=== PATIENT | male | born 1945 | race Caucasian/White ===

== ENCOUNTER 2021-12-19 15:44 | Emergency (ER) | payer OTHER, MEDICARE ==
[2021-12-19] MEDS ORDERED: Metolazone 2.5 MG Tab PO ONE (16:36)
[2021-12-19] MEDS ORDERED: Furosemide 40 MG/4 ML VIAL IVPUSH ONE (16:36)
[2021-12-19] MEDS ORDERED: hydrALAZINE 20 MG/ML SDV IVPUSH STA (16:37)
[2021-12-19] MEDS: Sodium Chloride 0.9% 10 ML Syringe FLUSH PRN ×2 (17:16→17:30)
[2021-12-19 18:09] LABS: CORONAVIRUS COVID-19 NAA NEGATIVE (NEGATIVE)
== END 2021-12-19 19:40 | disposition home or self-care (01) ==
LOC: FB.ED 15:44
DX: I50.9 Heart failure, unspecified (principal); I44.7 Left bundle-branch block, unspecified; Z91.048 Other nonmedicinal substance allergy status; Z20.822 Contact with and (suspected) exposure to COVID-19
CPT/HCPCS: 0240U; 36415; 71045; 80053; 83880; 84484; 85025; 85610; 85730; 93005; 96374; 96375; 99285; A9270; J0360; J1940; 93010

== ENCOUNTER 2022-09-24 16:39 | Inpatient (IN) | payer OTHER, MEDICARE ==
[2022-09-24] MEDS ORDERED: Furosemide 40 MG/4 ML VIAL IVPUSH ONE (17:20)
[2022-09-24] MEDS ORDERED: Albuterol/Ipratropium 3.0-0.5 MG/3 ML Neb Soln NEB ONE (17:23)
[2022-09-24] MEDS: Nitroglycerin/D5W 25 MG/250 ML BOTTLE IV SCH (17:33)
[2022-09-24 17:45] LABS: ESTIMATED GFR 36 mL/min (>60)
[2022-09-24 17:51] LABS: BASE EXCESS VENOUS,POC -5 mmol/L (-2 - 3+); PCO2 VENOUS,POC 31 mmHg (41-51)
[2022-09-24 19:17] LABS: CORONAVIRUS COVID-19 NAA NEGATIVE (NEGATIVE)
[2022-09-24] MEDS ORDERED: Magnesium Hydroxide 400 MG/5 ML Susp 30 ML Cup PO PRN (20:50)
[2022-09-24] MEDS ORDERED: Zolpidem 5 MG Tab PO PRN (20:50)
[2022-09-24] MEDS ORDERED: Ondansetron 4 MG/2 ML SDV IV PRN (20:50)
[2022-09-24] MEDS ORDERED: 50% Dextrose in Water 50 ML Syringe IVPUSH PRN ×2 (20:58→21:03)
[2022-09-24] MEDS ORDERED: Glucagon,Human Recombinant 1 MG Vial IM PRN ×2 (20:58→21:03)
[2022-09-24] MEDS ORDERED: Acetaminophen 325 MG Tab PO PRN (20:58)
[2022-09-24] MEDS ORDERED: Furosemide 40 MG/4 ML VIAL IVPUSH SCH ×2 (21:00→23:30)
[2022-09-24] MEDS ORDERED: Albuterol/Ipratropium 3.0-0.5 MG/3 ML Neb Soln INH SCH (21:00)
[2022-09-24] MEDS ORDERED: Pantoprazole 40 MG Vial IVPUSH SCH (21:00)
[2022-09-24] MEDS ORDERED: Nitroglycerin/D5W 25 MG/250 ML BOTTLE IV SCH (21:00)
[2022-09-24] MEDS ORDERED: Azithromycin 250 MG Tab PO SCH (21:15)
[2022-09-24] MEDS: Enoxaparin 40 MG/0.4 ML Syringe SUBCUT SCH (22:08)
[2022-09-24] MEDS: METOPROLOL TARTRATE 50 MG PO SCH (23:36)
[2022-09-24] MEDS: Albuterol/Ipratropium 3.0-0.5 MG/3 ML Neb Soln INH SCH (23:38)
[2022-09-24] MEDS: ATORVASTATIN 80 MG PO SCH (23:38)
[2022-09-24] MEDS: Pantoprazole 40 MG Vial IVPUSH SCH (23:42)
[2022-09-25] MEDS: Nitroglycerin/D5W 25 MG/250 ML BOTTLE IV SCH ×2 (00:20→04:34)
[2022-09-25] MEDS: Albuterol/Ipratropium 3.0-0.5 MG/3 ML Neb Soln INH SCH ×5 (04:38→22:34)
[2022-09-25 06:59] LABS: ESTIMATED GFR 36 mL/min (>60)
[2022-09-25] MEDS ORDERED: Insulin Regular, Human 100 Units/ML 3 ML Vial SUBCUT SCH (07:30)
[2022-09-25] MEDS ORDERED: Furosemide 40 MG/4 ML VIAL IVPUSH SCH (08:00)
[2022-09-25] MEDS ORDERED: AMLODIPINE PO SCH (09:00)
[2022-09-25] MEDS ORDERED: BENAZEPRIL PO SCH (09:00)
[2022-09-25] MEDS ORDERED: Insulin Lispro 100 Unit/ML 3 ML KwikPen SUBCUT ONE (10:05)
[2022-09-25] MEDS: Potassium Chloride 20 MEQ Tab.ER PO SCH (10:06)
[2022-09-25] MEDS: Lisinopril 20 MG Tab PO SCH (10:06)
[2022-09-25] MEDS: METOPROLOL TARTRATE 50 MG PO SCH ×2 (10:07→20:54)
[2022-09-25] MEDS: Venlafaxine 150 MG Cap.ER PO SCH ×2 (10:08→20:54)
[2022-09-25] MEDS: Insulin Lispro 100 Unit/ML 3 ML KwikPen SUBCUT SCH ×3 (10:08→17:18)
[2022-09-25] MEDS: Pantoprazole 40 MG Vial IVPUSH SCH (10:17)
[2022-09-25] MEDS: methylPREDNISolone Sodium Succinate 125 MG/2 ML SDV IVPUSH SCH ×3 (10:28→22:33)
[2022-09-25] MEDS: Furosemide 40 MG Tab PO SCH (13:12)
[2022-09-25] MEDS ORDERED: Labetalol 20 MG/4 ML Syringe IVPUSH ONE (15:33)
[2022-09-25] MEDS ORDERED: Nicotine 21 MG/24 Hr Patch TRDERM SCH (18:00)
[2022-09-25] MEDS: hydrALAZINE 20 MG/ML SDV IVPUSH PRN (18:19)
[2022-09-25] MEDS: INSULIN GLARGINE HUMAN REC ANALOG 100 UNIT/ML SUBCUT SCH (18:47)
[2022-09-25] MEDS: ATORVASTATIN 80 MG PO SCH (20:55)
[2022-09-25] MEDS: Enoxaparin 40 MG/0.4 ML Syringe SUBCUT SCH (20:56)
[2022-09-25] MEDS: Azithromycin 500 MG Tab PO SCH (20:56)
[2022-09-25] MEDS ORDERED: Azithromycin 500 MG Tab PO SCH (21:00)
[2022-09-26] MEDS: methylPREDNISolone Sodium Succinate 125 MG/2 ML SDV IVPUSH SCH ×2 (04:26→10:39)
[2022-09-26] MEDS: Albuterol/Ipratropium 3.0-0.5 MG/3 ML Neb Soln INH SCH ×4 (04:26→23:45)
[2022-09-26] MEDS: Sodium Chloride 0.9% 10 ML Syringe FLUSH PRN ×8 (04:28→17:09)
[2022-09-26] MEDS: hydrALAZINE 20 MG/ML SDV IVPUSH PRN ×2 (04:29→17:04)
[2022-09-26 06:37] LABS: ESTIMATED GFR 34 mL/min (>60)
[2022-09-26] MEDS ORDERED: Chlorthalidone 25 MG Tab PO ONE (07:56)
[2022-09-26] MEDS: Potassium Chloride 20 MEQ Tab.ER PO SCH (08:30)
[2022-09-26] MEDS: Furosemide 40 MG Tab PO SCH ×2 (08:30→13:33)
[2022-09-26] MEDS: METOPROLOL TARTRATE 50 MG PO SCH (08:31)
[2022-09-26] MEDS: Lisinopril 20 MG Tab PO SCH (08:34)
[2022-09-26] MEDS: Insulin Lispro 100 Unit/ML 3 ML KwikPen SUBCUT SCH ×3 (08:35→17:58)
[2022-09-26] MEDS: Pantoprazole 40 MG Vial IVPUSH SCH (08:35)
[2022-09-26] MEDS ORDERED: Fluticasone NASAL Spray 16 GM Bottle NASBOTH SCH (09:00)
[2022-09-26] MEDS: INSULIN GLARGINE HUMAN REC ANALOG 100 UNIT/ML SUBCUT SCH (18:00)
[2022-09-26] MEDS ORDERED: Nicotine 21 MG/24 Hr Patch TRDERM SCH (18:00)
[2022-09-26] MEDS: Venlafaxine 150 MG Cap.ER PO SCH (20:38)
[2022-09-26] MEDS: Azithromycin 500 MG Tab PO SCH (20:39)
[2022-09-26] MEDS: Metoprolol Tartrate 25 MG Tab PO SCH (20:39)
[2022-09-26] MEDS: Enoxaparin 40 MG/0.4 ML Syringe SUBCUT SCH (20:43)
[2022-09-26] MEDS ORDERED: atorvaSTATin 40 MG Tab PO SCH (21:00)
[2022-09-27] MEDS: Albuterol/Ipratropium 3.0-0.5 MG/3 ML Neb Soln INH SCH ×2 (05:27→10:35)
[2022-09-27 06:51] LABS: ESTIMATED GFR 30 mL/min (>60)
[2022-09-27] MEDS: Insulin Lispro 100 Unit/ML 3 ML KwikPen SUBCUT SCH ×2 (08:40→12:28)
[2022-09-27] MEDS ORDERED: Furosemide 40 MG/4 ML VIAL IVPUSH ONE (08:45)
[2022-09-27] MEDS: Potassium Chloride 20 MEQ Tab.ER PO SCH (08:57)
[2022-09-27] MEDS: Metoprolol Tartrate 25 MG Tab PO SCH (08:58)
[2022-09-27] MEDS: Pantoprazole 40 MG Vial IVPUSH SCH (08:59)
[2022-09-27] MEDS: Lisinopril 20 MG Tab PO SCH (08:59)
[2022-09-27] MEDS ORDERED: Metolazone 2.5 MG Tab PO SCH (09:00)
[2022-09-27] MEDS: Sodium Chloride 0.9% 10 ML Syringe FLUSH PRN ×3 (09:01→14:48)
[2022-09-27] MEDS: Furosemide 40 MG Tab PO SCH (09:14)
[2022-09-27] MEDS ORDERED: Furosemide 40 MG/4 ML VIAL IVPUSH SCH (14:00)
== END 2022-09-27 16:20 | DRG 291 ==
LOC: FB.ED 16:39 → FB.MS 19:24 → OBSVTOIN 09-26 12:25
PROVIDERS: ADMIT Student in an Organized Health Care Education/Training Program; ATTEND Student in an Organized Health Care Education/Training Program
DX: I13.0 Hypertensive heart and chronic kidney disease with heart failure and stage 1 through stage 4 chronic kidney disease, or unspecified chronic kidney disease (principal); I50.20 Unspecified systolic (congestive) heart failure; I50.23 Acute on chronic systolic (congestive) heart failure; J44.1 Chronic obstructive pulmonary disease with (acute) exacerbation; J90 Pleural effusion, not elsewhere classified; N18.9 Chronic kidney disease, unspecified; E11.22 Type 2 diabetes mellitus with diabetic chronic kidney disease; N17.9 Acute kidney failure, unspecified; J81.1 Chronic pulmonary edema; I44.7 Left bundle-branch block, unspecified; E11.9 Type 2 diabetes mellitus without complications; E66.9 Obesity, unspecified; D72.829 Elevated white blood cell count, unspecified; I34.0 Nonrheumatic mitral (valve) insufficiency; H54.7 Unspecified visual loss; E78.00 Pure hypercholesterolemia, unspecified; Z87.891 Personal history of nicotine dependence; Z79.4 Long term (current) use of insulin; Z79.899 Other long term (current) drug therapy; Z91.09 Other allergy status, other than to drugs and biological substances; Z20.822 Contact with and (suspected) exposure to COVID-19; Z68.26 Body mass index [BMI] 26.0-26.9, adult
CPT/HCPCS: 0241U; 36415; 71045; 80048; 80053; 81001; 82947; 83605; 83735; 83880; 84484; 85025; 86140; 93005; 93306; 94640; A9270-GY; C8929; C9113; J0360; J1650; J1815; J1815-GY; J1940; J2930; J3490; J7620

== ENCOUNTER 2022-10-11 15:24 | Emergency (ER) | payer OTHER, MEDICARE ==
[2022-10-11] MEDS ORDERED: Sodium Chloride 0.9% 10 ML Syringe FLUSH PRN (16:21)
[2022-10-11 17:09] LABS: BASE EXCESS VENOUS,POC -3 mmol/L (-2 - 3+); PCO2 VENOUS,POC 24 mmHg (41-51)
[2022-10-11 17:10] LABS: ESTIMATED GFR 34 mL/min (>60)
[2022-10-11] MEDS ORDERED: Albuterol/Ipratropium 3.0-0.5 MG/3 ML Neb Soln NEB ONE (17:20)
[2022-10-11] MEDS ORDERED: Magnesium Sulfate/Water 2 GM in Premix Bag 1 BAG IV ONE (17:20)
[2022-10-11] MEDS ORDERED: methylPREDNISolone Sodium Succinate 40 MG/1 ML SDV IVPUSH ONE (17:37)
[2022-10-11 17:56] LABS: CORONAVIRUS COVID-19 NAA NEGATIVE (NEGATIVE)
[2022-10-11] MEDS ORDERED: Aspirin 81 MG Tab.Chew PO ONE (18:58)
[2022-10-11] MEDS ORDERED: cefTRIAXone 2 GM Vial IVPUSH ONE (18:58)
[2022-10-11] MEDS ORDERED: cefTRIAXone 1 GM Vial IVPUSH SCH (19:45)
[2022-10-11] MEDS ORDERED: cefTRIAXone 1 GM Vial ONE (21:03)
== END 2022-10-11 20:08 ==
LOC: FB.ED 15:24
DX: J18.9 Pneumonia, unspecified organism (principal); J44.1 Chronic obstructive pulmonary disease with (acute) exacerbation; I24.9 Acute ischemic heart disease, unspecified; R79.89 Other specified abnormal findings of blood chemistry; I11.0 Hypertensive heart disease with heart failure; I50.9 Heart failure, unspecified; E11.9 Type 2 diabetes mellitus without complications; Z91.048 Other nonmedicinal substance allergy status; Z79.899 Other long term (current) drug therapy; Z79.4 Long term (current) use of insulin; Z79.84 Long term (current) use of oral hypoglycemic drugs; Z87.891 Personal history of nicotine dependence; Z20.822 Contact with and (suspected) exposure to COVID-19
CPT/HCPCS: 0240U; 36415; 71045; 80053; 83605; 83735; 83880; 84484; 85025; 86140; 87040; 93005; 94640; 96365; 96375; 99285; A9270; J0696; J2920; J3475; J3490; J7620

== ENCOUNTER 2022-10-16 11:01 | Emergency (ER) | payer OTHER, MEDICARE ==
[2022-10-16] MEDS ORDERED: LORazepam 2 MG/ML SDV IVPUSH ONE (11:54)
[2022-10-16] MEDS ORDERED: Sodium Chloride 0.9% 10 ML Syringe FLUSH PRN (11:54)
[2022-10-16] MEDS ORDERED: Albuterol/Ipratropium 3.0-0.5 MG/3 ML Neb Soln NEB ONE (11:54)
[2022-10-16] MEDS ORDERED: methylPREDNISolone Sodium Succinate 125 MG/2 ML SDV IVPUSH ONE (11:57)
[2022-10-16 12:28] LABS: ESTIMATED GFR 26 mL/min (>60)
[2022-10-16 12:35] LABS: BASE EXCESS VENOUS,POC -6 mmol/L (-2 - 3+); PCO2 VENOUS,POC 24 mmHg (41-51); PH VENOUS,POC 7.45 pH Units (7.32-7.43)
[2022-10-16] MEDS ORDERED: Furosemide 20 MG/2 ML VIAL IVPUSH STA (13:58)
[2022-10-16] MEDS ORDERED: Furosemide 40 MG/4 ML VIAL IVPUSH STA (14:25)
[2022-10-16] MEDS ORDERED: Metolazone 2.5 MG Tab PO ONE (14:33)
== END 2022-10-16 17:00 ==
LOC: FB.ED 11:01
DX: J44.9 Chronic obstructive pulmonary disease, unspecified (principal); I13.0 Hypertensive heart and chronic kidney disease with heart failure and stage 1 through stage 4 chronic kidney disease, or unspecified chronic kidney disease; E11.22 Type 2 diabetes mellitus with diabetic chronic kidney disease; N18.9 Chronic kidney disease, unspecified; I50.1 Left ventricular failure, unspecified; E78.00 Pure hypercholesterolemia, unspecified; R00.0 Tachycardia, unspecified; I44.7 Left bundle-branch block, unspecified; Z87.891 Personal history of nicotine dependence; Z91.048 Other nonmedicinal substance allergy status; Z79.899 Other long term (current) drug therapy; Z79.4 Long term (current) use of insulin
CPT/HCPCS: 36415; 71045; 80053; 81001; 83880; 84484; 85025; 85610; 85730; 87040; 93005; 94640; 96374; 96375; 99285; A9270; J1940; J2060; J2930; J3490; J7620

== ENCOUNTER 2022-10-23 13:41 | Inpatient (IN) | payer OTHER, MEDICARE ==
[2022-10-23] MEDS ORDERED: Glucagon,Human Recombinant 1 MG Vial IM PRN (16:32)
[2022-10-23] MEDS ORDERED: Fluticasone NASAL Spray 16 GM Bottle NASBOTH PRN (16:32)
[2022-10-23] MEDS ORDERED: Acetaminophen/HYDROcodone 325-5 MG Tab PO PRN (16:32)
[2022-10-23] MEDS ORDERED: Albuterol 8 GM Inhaler INH PRN (16:32)
[2022-10-23] MEDS ORDERED: QUEtiapine 25 MG Tab PO PRN (16:32)
[2022-10-23] MEDS ORDERED: Calcium Carbonate 500 MG Tab.Chew CHEW PRN ×2 (16:32→16:40)
[2022-10-23] MEDS ORDERED: 50% Dextrose in Water 50 ML Syringe IVPUSH PRN (16:32)
[2022-10-23] MEDS ORDERED: Albuterol/Ipratropium 3.0-0.5 MG/3 ML Neb Soln INH PRN (17:04)
[2022-10-23] MEDS ORDERED: Nicotine Polacrilex 2 MG Gum BUCCAL PRN (17:05)
[2022-10-23] MEDS: Carvedilol 12.5 MG Tab PO SCH (17:06)
[2022-10-23] MEDS: metFORMIN 1,000 MG Tab PO SCH (17:13)
[2022-10-23] MEDS: Acetaminophen 325 MG Tab PO PRN (18:41)
[2022-10-23] MEDS: Ticagrelor 90 MG Tab PO SCH (20:22)
[2022-10-23] MEDS: Venlafaxine 150 MG Cap.ER PO SCH (20:23)
[2022-10-23] MEDS: Tamsulosin 0.4 MG Cap.ER PO SCH (20:24)
[2022-10-23] MEDS: atorvaSTATin 40 MG Tab PO SCH (20:24)
[2022-10-23] MEDS: Mirtazapine 15 MG Tab PO SCH (20:25)
[2022-10-23] MEDS: Sodium Bicarbonate 650 MG Tab PO SCH (20:25)
[2022-10-23] MEDS: Insulin Glargine,Human Rec. Analog 100 Units/ML 3 ML Pen SUBCUT SCH (20:31)
[2022-10-24] MEDS: Pantoprazole 40 MG Tab.CR PO SCH (05:00)
[2022-10-24] MEDS: Acetaminophen 325 MG Tab PO PRN (05:04)
[2022-10-24] MEDS: metFORMIN 1,000 MG Tab PO SCH ×2 (07:58→17:29)
[2022-10-24] MEDS: Carvedilol 12.5 MG Tab PO SCH ×2 (07:58→17:27)
[2022-10-24] MEDS: Nicotine 21 MG/24 Hr Patch TOP SCH (08:00)
[2022-10-24] MEDS: Furosemide 20 MG Tab PO SCH (08:01)
[2022-10-24] MEDS: Ticagrelor 90 MG Tab PO SCH ×2 (08:01→19:59)
[2022-10-24] MEDS: Isosorbide Mononitrate 30 MG Tab.ER PO SCH (08:01)
[2022-10-24] MEDS: Sodium Bicarbonate 650 MG Tab PO SCH ×2 (08:02→20:00)
[2022-10-24] MEDS: Folic Acid 1 MG Tab PO SCH (08:03)
[2022-10-24] MEDS: Cholecalciferol (Vitamin D3) 25 MCG Tab PO SCH (08:03)
[2022-10-24] MEDS: Aspirin 81 MG Tab.EC PO SCH (08:03)
[2022-10-24] MEDS ORDERED: Docusate Sodium 100 MG Cap PO PRN ×2 (08:44→08:46)
[2022-10-24] MEDS: Polyethylene Glycol 3350 Powder 17 GM Packet PO SCH (09:28)
[2022-10-24] MEDS: Sodium Chloride 0.65% Nasal Spray 45 ML Bottle NASBOTH SCH ×4 (10:51→20:00)
[2022-10-24] MEDS: atorvaSTATin 40 MG Tab PO SCH (19:59)
[2022-10-24] MEDS: Tamsulosin 0.4 MG Cap.ER PO SCH (19:59)
[2022-10-24] MEDS: Venlafaxine 150 MG Cap.ER PO SCH (19:59)
[2022-10-24] MEDS: Mirtazapine 15 MG Tab PO SCH (20:00)
[2022-10-24] MEDS: Insulin Glargine,Human Rec. Analog 100 Units/ML 3 ML Pen SUBCUT SCH (20:01)
[2022-10-25] MEDS: Pantoprazole 40 MG Tab.CR PO SCH (05:44)
[2022-10-25] MEDS ORDERED: Bisacodyl 10 MG Supp RECTAL PRN (08:09)
[2022-10-25] MEDS: Sodium Chloride 0.65% Nasal Spray 45 ML Bottle NASBOTH SCH ×4 (08:58→20:42)
[2022-10-25] MEDS ORDERED: Sodium Chloride 0.65% Nasal Spray 45 ML Bottle NAS PRN (09:00)
[2022-10-25] MEDS: Carvedilol 12.5 MG Tab PO SCH ×2 (09:03→18:20)
[2022-10-25] MEDS: metFORMIN 1,000 MG Tab PO SCH ×2 (09:03→18:19)
[2022-10-25] MEDS: Ticagrelor 90 MG Tab PO SCH ×2 (09:06→20:35)
[2022-10-25] MEDS: Folic Acid 1 MG Tab PO SCH (09:08)
[2022-10-25] MEDS: Nicotine 21 MG/24 Hr Patch TOP SCH (09:08)
[2022-10-25] MEDS: Furosemide 20 MG Tab PO SCH (09:10)
[2022-10-25] MEDS: Aspirin 81 MG Tab.EC PO SCH (09:10)
[2022-10-25] MEDS: Isosorbide Mononitrate 30 MG Tab.ER PO SCH (09:10)
[2022-10-25] MEDS: Cholecalciferol (Vitamin D3) 25 MCG Tab PO SCH (09:11)
[2022-10-25] MEDS: Polyethylene Glycol 3350 Powder 17 GM Packet PO SCH (09:11)
[2022-10-25] MEDS: Sodium Bicarbonate 650 MG Tab PO SCH ×2 (09:11→20:37)
[2022-10-25] MEDS: Docusate Sodium 100 MG Cap PO SCH (09:15)
[2022-10-25] MEDS: Tamsulosin 0.4 MG Cap.ER PO SCH (20:36)
[2022-10-25] MEDS: Venlafaxine 150 MG Cap.ER PO SCH (20:36)
[2022-10-25] MEDS: atorvaSTATin 40 MG Tab PO SCH (20:37)
[2022-10-25] MEDS: Mirtazapine 15 MG Tab PO SCH (20:37)
[2022-10-25] MEDS: Insulin Glargine,Human Rec. Analog 100 Units/ML 3 ML Pen SUBCUT SCH (20:41)
[2022-10-26] MEDS ORDERED: cloNIDine 0.1 MG Tab PO ONE (04:27)
[2022-10-26] MEDS: Pantoprazole 40 MG Tab.CR PO SCH (06:00)
[2022-10-26] MEDS: metFORMIN 1,000 MG Tab PO SCH (09:00)
[2022-10-26] MEDS: Carvedilol 12.5 MG Tab PO SCH (09:00)
[2022-10-26] MEDS: Sodium Chloride 0.65% Nasal Spray 45 ML Bottle NASBOTH SCH (09:01)
[2022-10-26] MEDS: Sodium Bicarbonate 650 MG Tab PO SCH (09:03)
[2022-10-26] MEDS: Aspirin 81 MG Tab.EC PO SCH (09:04)
[2022-10-26] MEDS: Ticagrelor 90 MG Tab PO SCH (09:04)
[2022-10-26] MEDS: Folic Acid 1 MG Tab PO SCH (09:04)
[2022-10-26] MEDS: Isosorbide Mononitrate 30 MG Tab.ER PO SCH (09:04)
[2022-10-26] MEDS: Furosemide 20 MG Tab PO SCH (09:04)
[2022-10-26] MEDS: Cholecalciferol (Vitamin D3) 25 MCG Tab PO SCH (09:05)
[2022-10-26] MEDS: Polyethylene Glycol 3350 Powder 17 GM Packet PO SCH (09:06)
[2022-10-26] MEDS: Nicotine 21 MG/24 Hr Patch TOP SCH (09:06)
[2022-10-26] MEDS: Docusate Sodium 100 MG Cap PO SCH (09:19)
== END 2022-10-26 11:20 | disposition home health service (06) | DRG 948 ==
LOC: FB.MS 14:32
PROVIDERS: ADMIT Family Medicine; ATTEND Family Medicine
DX: R53.1 Weakness (principal); I24.9 Acute ischemic heart disease, unspecified; I13.0 Hypertensive heart and chronic kidney disease with heart failure and stage 1 through stage 4 chronic kidney disease, or unspecified chronic kidney disease; I50.22 Chronic systolic (congestive) heart failure; J90 Pleural effusion, not elsewhere classified; Z95.0 Presence of cardiac pacemaker; R04.0 Epistaxis; J42 Unspecified chronic bronchitis; E11.9 Type 2 diabetes mellitus without complications; I25.10 Atherosclerotic heart disease of native coronary artery without angina pectoris; N18.9 Chronic kidney disease, unspecified; I27.20 Pulmonary hypertension, unspecified; Z79.82 Long term (current) use of aspirin; Z79.84 Long term (current) use of oral hypoglycemic drugs; Z79.899 Other long term (current) drug therapy; Z91.048 Other nonmedicinal substance allergy status; Z85.72 Personal history of non-Hodgkin lymphomas; Z92.3 Personal history of irradiation; Z92.21 Personal history of antineoplastic chemotherapy; Z95.5 Presence of coronary angioplasty implant and graft; F17.210 Nicotine dependence, cigarettes, uncomplicated; I49.5 Sick sinus syndrome
CPT/HCPCS: 82947; 97161-GP; 97165-GO; 97530-GP; 97535-GO; A9270-GY; J1815-GY

== ENCOUNTER 2022-11-04 17:30 | Inpatient (IN) | payer OTHER, MEDICARE ==
[2022-11-04] MEDS ORDERED: Furosemide 40 MG/4 ML VIAL IVPUSH ONE (17:51)
[2022-11-04 18:14] LABS: ESTIMATED GFR 39 mL/min (>60)
[2022-11-04] MEDS ORDERED: Calcium Carbonate 500 MG Tab.Chew CHEW PRN (22:28)
[2022-11-04] MEDS ORDERED: 50% Dextrose in Water 50 ML Syringe IVPUSH PRN (22:28)
[2022-11-04] MEDS ORDERED: QUEtiapine 25 MG Tab PO PRN (22:28)
[2022-11-04] MEDS ORDERED: Sodium Chloride 0.65% Nasal Spray 45 ML Bottle NAS PRN (22:28)
[2022-11-04] MEDS ORDERED: Glucagon,Human Recombinant 1 MG Vial IM PRN (22:28)
[2022-11-04] MEDS ORDERED: Albuterol 8 GM Inhaler INH PRN (22:28)
[2022-11-05] MEDS: Pantoprazole 40 MG Tab.CR PO SCH (05:53)
[2022-11-05] MEDS ORDERED: Non-Formulary Medication 1 Each (Omeprazole [Omeprazole] 20 MG Capsule.Dr) PO SCH (06:00)
[2022-11-05 06:56] LABS: ESTIMATED GFR 36 mL/min (>60)
[2022-11-05] MEDS ORDERED: Calcium Carbonate 500 MG Tab.Chew CHEW PRN (08:02)
[2022-11-05] MEDS ORDERED: Furosemide 100 MG/10 ML SDV IVPUSH SCH (09:00)
[2022-11-05] MEDS: metFORMIN 1,000 MG Tab PO SCH ×2 (09:05→17:45)
[2022-11-05] MEDS: Ticagrelor 90 MG Tab PO SCH ×2 (09:06→20:06)
[2022-11-05] MEDS: Carvedilol 12.5 MG Tab PO SCH ×2 (09:06→17:35)
[2022-11-05] MEDS: Aspirin 81 MG Tab.EC PO SCH (09:07)
[2022-11-05] MEDS: Folic Acid 1 MG Tab PO SCH (09:07)
[2022-11-05] MEDS: Nicotine 21 MG/24 Hr Patch TOP SCH (09:07)
[2022-11-05] MEDS: Isosorbide Mononitrate 30 MG Tab.ER PO SCH (09:08)
[2022-11-05] MEDS: Sodium Bicarbonate 650 MG Tab PO SCH ×2 (09:08→20:06)
[2022-11-05] MEDS: Cholecalciferol (Vitamin D3) 25 MCG Tab PO SCH (09:08)
[2022-11-05] MEDS: methylPREDNISolone Sodium Succinate 125 MG/2 ML SDV IVPUSH SCH ×2 (09:13→17:05)
[2022-11-05] MEDS: Sodium Chloride 0.9% 10 ML Syringe FLUSH PRN ×2 (09:13→09:21)
[2022-11-05] MEDS ORDERED: Albuterol/Ipratropium 3.0-0.5 MG/3 ML Neb Soln INH PRN (09:36)
[2022-11-05] MEDS: Mirtazapine 15 MG Tab PO SCH (20:02)
[2022-11-05] MEDS: atorvaSTATin 40 MG Tab PO SCH (20:04)
[2022-11-05] MEDS: Tamsulosin 0.4 MG Cap.ER PO SCH (20:07)
[2022-11-05] MEDS: Venlafaxine 150 MG Cap.ER PO SCH (20:08)
[2022-11-05] MEDS ORDERED: Insulin Glargine,Human Rec. Analog 100 Units/ML 3 ML Pen SUBCUT ONE (20:12)
[2022-11-05] MEDS: Insulin Glargine,Human Rec. Analog 100 Units/ML 3 ML Pen SUBCUT SCH (20:13)
[2022-11-06] MEDS: methylPREDNISolone Sodium Succinate 125 MG/2 ML SDV IVPUSH SCH ×2 (00:07→09:12)
[2022-11-06] MEDS: Sodium Chloride 0.9% 10 ML Syringe FLUSH PRN ×4 (00:08→15:36)
[2022-11-06] MEDS: Pantoprazole 40 MG Tab.CR PO SCH (05:08)
[2022-11-06 07:11] LABS: ESTIMATED GFR 34 mL/min (>60)
[2022-11-06] MEDS: metFORMIN 1,000 MG Tab PO SCH ×2 (08:21→18:46)
[2022-11-06] MEDS: Carvedilol 12.5 MG Tab PO SCH ×2 (08:22→18:46)
[2022-11-06] MEDS: Cholecalciferol (Vitamin D3) 25 MCG Tab PO SCH (08:23)
[2022-11-06] MEDS: Ticagrelor 90 MG Tab PO SCH ×2 (08:24→20:22)
[2022-11-06] MEDS: Isosorbide Mononitrate 30 MG Tab.ER PO SCH (08:24)
[2022-11-06] MEDS: Sodium Bicarbonate 650 MG Tab PO SCH ×2 (08:24→20:22)
[2022-11-06] MEDS: Folic Acid 1 MG Tab PO SCH (08:25)
[2022-11-06] MEDS: Nicotine 21 MG/24 Hr Patch TOP SCH (08:25)
[2022-11-06] MEDS: Aspirin 81 MG Tab.EC PO SCH (08:26)
[2022-11-06] MEDS: Furosemide 100 MG/10 ML SDV IVPUSH SCH ×2 (10:13→15:35)
[2022-11-06] MEDS: cefTRIAXone 1 GM Vial IVPUSH SCH (10:13)
[2022-11-06 11:18] LABS: CORONAVIRUS COVID-19 NAA NEGATIVE (NEGATIVE)
[2022-11-06] MEDS: Enoxaparin 30 MG/0.3 ML Syringe SUBCUT SCH (12:08)
[2022-11-06] MEDS ORDERED: Sodium Chloride 0.9% 1,000 ML IV ONE (12:54)
[2022-11-06] MEDS: Mirtazapine 15 MG Tab PO SCH (20:22)
[2022-11-06] MEDS: Venlafaxine 150 MG Cap.ER PO SCH (20:22)
[2022-11-06] MEDS: Tamsulosin 0.4 MG Cap.ER PO SCH (20:22)
[2022-11-06] MEDS: Insulin Glargine,Human Rec. Analog 100 Units/ML 3 ML Pen SUBCUT SCH (20:23)
[2022-11-06] MEDS: atorvaSTATin 40 MG Tab PO SCH (20:23)
[2022-11-07] MEDS: Pantoprazole 40 MG Tab.CR PO SCH (05:09)
[2022-11-07 06:36] LABS: ESTIMATED GFR 30 mL/min (>60)
[2022-11-07] MEDS: Carvedilol 12.5 MG Tab PO SCH ×2 (08:27→17:55)
[2022-11-07] MEDS: metFORMIN 1,000 MG Tab PO SCH ×2 (08:27→17:54)
[2022-11-07] MEDS: Furosemide 100 MG/10 ML SDV IVPUSH SCH ×2 (08:29→14:10)
[2022-11-07] MEDS: Ticagrelor 90 MG Tab PO SCH ×2 (08:29→20:49)
[2022-11-07] MEDS: Folic Acid 1 MG Tab PO SCH (08:29)
[2022-11-07] MEDS: predniSONE 20 MG Tab PO SCH (08:29)
[2022-11-07] MEDS: Isosorbide Mononitrate 30 MG Tab.ER PO SCH (08:30)
[2022-11-07] MEDS: Nicotine 21 MG/24 Hr Patch TOP SCH (08:30)
[2022-11-07] MEDS: Aspirin 81 MG Tab.EC PO SCH (08:30)
[2022-11-07] MEDS: Cholecalciferol (Vitamin D3) 25 MCG Tab PO SCH (08:31)
[2022-11-07] MEDS: Sodium Chloride 0.9% 10 ML Syringe FLUSH PRN ×3 (08:31→14:11)
[2022-11-07] MEDS: Sodium Bicarbonate 650 MG Tab PO SCH ×2 (08:31→20:48)
[2022-11-07] MEDS: cefTRIAXone 1 GM Vial IVPUSH SCH (08:31)
[2022-11-07] MEDS ORDERED: VANCOmycin 1.5 GM/300 ML 300 ML IV ONE (09:00)
[2022-11-07] MEDS ORDERED: Polyethylene Glycol 3350 Powder 17 GM Packet PO PRN (09:29)
[2022-11-07] MEDS: Enoxaparin 30 MG/0.3 ML Syringe SUBCUT SCH (09:46)
[2022-11-07] MEDS: atorvaSTATin 40 MG Tab PO SCH (20:48)
[2022-11-07] MEDS: Tamsulosin 0.4 MG Cap.ER PO SCH (20:49)
[2022-11-07] MEDS: Venlafaxine 150 MG Cap.ER PO SCH (20:49)
[2022-11-07] MEDS: Mirtazapine 15 MG Tab PO SCH (20:49)
[2022-11-07] MEDS: Insulin Glargine,Human Rec. Analog 100 Units/ML 3 ML Pen SUBCUT SCH (20:50)
[2022-11-08] MEDS: Pantoprazole 40 MG Tab.CR PO SCH (05:44)
[2022-11-08 07:38] LABS: ESTIMATED GFR 36 mL/min (>60)
[2022-11-08] MEDS: Carvedilol 12.5 MG Tab PO SCH ×2 (08:05→18:15)
[2022-11-08] MEDS: metFORMIN 1,000 MG Tab PO SCH ×2 (08:08→18:12)
[2022-11-08] MEDS: Furosemide 100 MG/10 ML SDV IVPUSH SCH ×2 (08:08→15:11)
[2022-11-08] MEDS: predniSONE 20 MG Tab PO SCH (08:09)
[2022-11-08] MEDS ORDERED: Potassium Chloride 20 MEQ Tab.ER PO ONE (08:49)
[2022-11-08] MEDS: VANCOmycin 1 GM/200 ML 200 ML IV SCH (09:58)
[2022-11-08] MEDS: cefTRIAXone 1 GM Vial IVPUSH SCH (10:00)
[2022-11-08] MEDS: Ticagrelor 90 MG Tab PO SCH ×2 (10:08→21:09)
[2022-11-08] MEDS: Folic Acid 1 MG Tab PO SCH (10:09)
[2022-11-08] MEDS: Nicotine 21 MG/24 Hr Patch TOP SCH (10:09)
[2022-11-08] MEDS: Aspirin 81 MG Tab.EC PO SCH (10:09)
[2022-11-08] MEDS: Isosorbide Mononitrate 30 MG Tab.ER PO SCH (10:09)
[2022-11-08] MEDS: Sodium Bicarbonate 650 MG Tab PO SCH ×2 (10:11→21:08)
[2022-11-08] MEDS: Cholecalciferol (Vitamin D3) 25 MCG Tab PO SCH (10:11)
[2022-11-08] MEDS: Enoxaparin 30 MG/0.3 ML Syringe SUBCUT SCH (10:12)
[2022-11-08] MEDS: Sodium Chloride 0.9% 10 ML Syringe FLUSH PRN (15:12)
[2022-11-08] MEDS: Insulin Glargine,Human Rec. Analog 100 Units/ML 3 ML Pen SUBCUT SCH (21:05)
[2022-11-08] MEDS: Mirtazapine 15 MG Tab PO SCH (21:07)
[2022-11-08] MEDS: atorvaSTATin 40 MG Tab PO SCH (21:08)
[2022-11-08] MEDS: Venlafaxine 150 MG Cap.ER PO SCH (21:08)
[2022-11-08] MEDS: Tamsulosin 0.4 MG Cap.ER PO SCH (21:09)
[2022-11-09] MEDS: Pantoprazole 40 MG Tab.CR PO SCH (06:29)
[2022-11-09 07:13] LABS: ESTIMATED GFR 41 mL/min (>60)
[2022-11-09] MEDS: Metolazone 5 MG Tab PO SCH (08:19)
[2022-11-09] MEDS: Carvedilol 12.5 MG Tab PO SCH ×2 (08:19→17:35)
[2022-11-09] MEDS: metFORMIN 1,000 MG Tab PO SCH ×2 (08:22→17:35)
[2022-11-09] MEDS: Sodium Chloride 0.9% 10 ML Syringe FLUSH PRN (08:23)
[2022-11-09] MEDS: predniSONE 20 MG Tab PO SCH (08:23)
[2022-11-09] MEDS: Furosemide 100 MG/10 ML SDV IVPUSH SCH ×2 (08:23→14:34)
[2022-11-09] MEDS: Ticagrelor 90 MG Tab PO SCH ×2 (09:38→20:45)
[2022-11-09] MEDS: Aspirin 81 MG Tab.EC PO SCH (09:38)
[2022-11-09] MEDS: Folic Acid 1 MG Tab PO SCH (09:38)
[2022-11-09] MEDS: Isosorbide Mononitrate 30 MG Tab.ER PO SCH (09:38)
[2022-11-09] MEDS: Sodium Bicarbonate 650 MG Tab PO SCH ×2 (09:41→20:43)
[2022-11-09] MEDS: cefTRIAXone 1 GM Vial IVPUSH SCH (09:41)
[2022-11-09] MEDS: Cholecalciferol (Vitamin D3) 25 MCG Tab PO SCH (09:42)
[2022-11-09] MEDS: Nicotine 21 MG/24 Hr Patch TOP SCH ×2 (09:47→10:00)
[2022-11-09] MEDS: VANCOmycin 1 GM/200 ML 200 ML IV SCH (11:10)
[2022-11-09] MEDS: Enoxaparin 30 MG/0.3 ML Syringe SUBCUT SCH (11:14)
[2022-11-09] MEDS: Nicotine Polacrilex 2 MG Gum CHEW PRN (13:26)
[2022-11-09] MEDS: Insulin Glargine,Human Rec. Analog 100 Units/ML 3 ML Pen SUBCUT SCH (20:40)
[2022-11-09] MEDS: atorvaSTATin 40 MG Tab PO SCH (20:43)
[2022-11-09] MEDS: Mirtazapine 15 MG Tab PO SCH (20:44)
[2022-11-09] MEDS: Tamsulosin 0.4 MG Cap.ER PO SCH (20:45)
[2022-11-09] MEDS: Venlafaxine 150 MG Cap.ER PO SCH (20:45)
[2022-11-10 06:42] LABS: ESTIMATED GFR 36 mL/min (>60)
[2022-11-10] MEDS: Pantoprazole 40 MG Tab.CR PO SCH (06:45)
[2022-11-10] MEDS: Metolazone 5 MG Tab PO SCH (06:45)
[2022-11-10] MEDS: cefTRIAXone 1 GM Vial IVPUSH SCH (09:48)
[2022-11-10] MEDS: Furosemide 100 MG/10 ML SDV IVPUSH SCH ×2 (09:52→14:28)
[2022-11-10] MEDS: Aspirin 81 MG Tab.EC PO SCH (10:02)
[2022-11-10] MEDS: Carvedilol 12.5 MG Tab PO SCH ×2 (10:02→18:07)
[2022-11-10] MEDS: predniSONE 10 MG Tab PO SCH (10:02)
[2022-11-10] MEDS: Ticagrelor 90 MG Tab PO SCH ×2 (10:03→20:49)
[2022-11-10] MEDS: Sodium Bicarbonate 650 MG Tab PO SCH ×2 (10:03→20:50)
[2022-11-10] MEDS: Folic Acid 1 MG Tab PO SCH (10:05)
[2022-11-10] MEDS: Enoxaparin 30 MG/0.3 ML Syringe SUBCUT SCH (10:06)
[2022-11-10] MEDS: metFORMIN 1,000 MG Tab PO SCH ×2 (10:07→18:07)
[2022-11-10] MEDS: Isosorbide Mononitrate 30 MG Tab.ER PO SCH (10:08)
[2022-11-10] MEDS: Cholecalciferol (Vitamin D3) 25 MCG Tab PO SCH (10:09)
[2022-11-10] MEDS: VANCOmycin 1 GM/200 ML 200 ML IV SCH (10:24)
[2022-11-10] MEDS: Nicotine Polacrilex 2 MG Gum CHEW PRN ×3 (10:32→20:47)
[2022-11-10] MEDS: Insulin Glargine,Human Rec. Analog 100 Units/ML 3 ML Pen SUBCUT SCH (20:43)
[2022-11-10] MEDS: Venlafaxine 150 MG Cap.ER PO SCH (20:49)
[2022-11-10] MEDS: Mirtazapine 15 MG Tab PO SCH (20:49)
[2022-11-10] MEDS: Tamsulosin 0.4 MG Cap.ER PO SCH (20:49)
[2022-11-10] MEDS: atorvaSTATin 40 MG Tab PO SCH (20:49)
[2022-11-11] MEDS: Pantoprazole 40 MG Tab.CR PO SCH (06:50)
[2022-11-11] MEDS: Metolazone 5 MG Tab PO SCH (06:51)
[2022-11-11 06:58] LABS: ESTIMATED GFR 34 mL/min (>60)
[2022-11-11] MEDS: predniSONE 10 MG Tab PO SCH (08:18)
[2022-11-11] MEDS: metFORMIN 1,000 MG Tab PO SCH (08:18)
[2022-11-11] MEDS: Carvedilol 12.5 MG Tab PO SCH ×2 (08:19→17:28)
[2022-11-11] MEDS: Furosemide 100 MG/10 ML SDV IVPUSH SCH (08:19)
[2022-11-11] MEDS: Nicotine Polacrilex 2 MG Gum CHEW PRN ×3 (08:24→20:35)
[2022-11-11] MEDS: VANCOmycin 1 GM/200 ML 200 ML IV SCH (10:40)
[2022-11-11] MEDS: Sodium Chloride 0.9% 10 ML Syringe FLUSH PRN ×2 (10:41→15:00)
[2022-11-11] MEDS: Aspirin 81 MG Tab.EC PO SCH (10:46)
[2022-11-11] MEDS: Folic Acid 1 MG Tab PO SCH (10:46)
[2022-11-11] MEDS: Sodium Bicarbonate 650 MG Tab PO SCH ×2 (10:47→20:34)
[2022-11-11] MEDS: Isosorbide Mononitrate 30 MG Tab.ER PO SCH (10:47)
[2022-11-11] MEDS: Cholecalciferol (Vitamin D3) 25 MCG Tab PO SCH (10:48)
[2022-11-11] MEDS: Enoxaparin 30 MG/0.3 ML Syringe SUBCUT SCH (10:48)
[2022-11-11] MEDS: Ticagrelor 90 MG Tab PO SCH ×2 (11:21→20:35)
[2022-11-11] MEDS: Furosemide 40 MG/4 ML VIAL IVPUSH SCH (15:00)
[2022-11-11] MEDS ORDERED: Insulin Lispro 100 Unit/ML 3 ML KwikPen SUBCUT ONE (17:22)
[2022-11-11] MEDS: Insulin Lispro 100 Unit/ML 3 ML KwikPen SUBCUT SCH (17:29)
[2022-11-11] MEDS: Insulin Glargine,Human Rec. Analog 100 Units/ML 3 ML Pen SUBCUT SCH (20:32)
[2022-11-11] MEDS: atorvaSTATin 40 MG Tab PO SCH (20:34)
[2022-11-11] MEDS: Tamsulosin 0.4 MG Cap.ER PO SCH (20:35)
[2022-11-11] MEDS: Venlafaxine 150 MG Cap.ER PO SCH (20:35)
[2022-11-11] MEDS: Mirtazapine 15 MG Tab PO SCH (20:35)
[2022-11-12] MEDS: Pantoprazole 40 MG Tab.CR PO SCH (06:11)
[2022-11-12 06:40] LABS: ESTIMATED GFR 32 mL/min (>60)
[2022-11-12] MEDS ORDERED: Furosemide 40 MG/4 ML VIAL IVPUSH SCH (08:00)
[2022-11-12] MEDS: Cholecalciferol (Vitamin D3) 25 MCG Tab PO SCH (09:14)
[2022-11-12] MEDS: predniSONE 10 MG Tab PO SCH (09:14)
[2022-11-12] MEDS: Sodium Bicarbonate 650 MG Tab PO SCH ×2 (09:14→20:36)
[2022-11-12] MEDS: Folic Acid 1 MG Tab PO SCH (09:15)
[2022-11-12] MEDS: Aspirin 81 MG Tab.EC PO SCH (09:15)
[2022-11-12] MEDS: Isosorbide Mononitrate 30 MG Tab.ER PO SCH (09:15)
[2022-11-12] MEDS: Carvedilol 12.5 MG Tab PO SCH ×2 (09:18→17:39)
[2022-11-12] MEDS: Insulin Lispro 100 Unit/ML 3 ML KwikPen SUBCUT SCH ×3 (09:19→17:40)
[2022-11-12] MEDS: Ticagrelor 90 MG Tab PO SCH ×2 (09:20→20:34)
[2022-11-12] MEDS: Enoxaparin 30 MG/0.3 ML Syringe SUBCUT SCH (09:20)
[2022-11-12] MEDS: Nicotine Polacrilex 2 MG Gum CHEW PRN ×2 (09:20→13:05)
[2022-11-12] MEDS: Sodium Chloride 0.9% 10 ML Syringe FLUSH PRN (09:22)
[2022-11-12] MEDS: Furosemide 40 MG/4 ML VIAL IVPUSH SCH (09:26)
[2022-11-12] MEDS: VANCOmycin 1 GM/200 ML 200 ML IV SCH (09:29)
[2022-11-12] MEDS: cefTRIAXone 1 GM Vial IVPUSH SCH (10:51)
[2022-11-12] MEDS: Furosemide 100 MG/10 ML SDV IVPUSH SCH (13:05)
[2022-11-12] MEDS: Tamsulosin 0.4 MG Cap.ER PO SCH (20:35)
[2022-11-12] MEDS: atorvaSTATin 40 MG Tab PO SCH (20:35)
[2022-11-12] MEDS: Venlafaxine 150 MG Cap.ER PO SCH (20:35)
[2022-11-12] MEDS: Mirtazapine 15 MG Tab PO SCH (20:36)
[2022-11-12] MEDS: Insulin Glargine,Human Rec. Analog 100 Units/ML 3 ML Pen SUBCUT SCH (20:43)
[2022-11-13 06:49] LABS: ESTIMATED GFR 34 mL/min (>60)
[2022-11-13] MEDS: Pantoprazole 40 MG Tab.CR PO SCH (07:02)
[2022-11-13] MEDS: Insulin Lispro 100 Unit/ML 3 ML KwikPen SUBCUT SCH ×3 (07:56→17:29)
[2022-11-13] MEDS: Sodium Bicarbonate 650 MG Tab PO SCH ×2 (08:03→21:36)
[2022-11-13] MEDS: Carvedilol 12.5 MG Tab PO SCH ×2 (08:03→17:29)
[2022-11-13] MEDS: Folic Acid 1 MG Tab PO SCH (08:03)
[2022-11-13] MEDS: Ticagrelor 90 MG Tab PO SCH ×2 (08:03→21:34)
[2022-11-13] MEDS: Cholecalciferol (Vitamin D3) 25 MCG Tab PO SCH (08:03)
[2022-11-13] MEDS: Isosorbide Mononitrate 30 MG Tab.ER PO SCH (08:04)
[2022-11-13] MEDS: predniSONE 20 MG Tab PO SCH (08:04)
[2022-11-13] MEDS: Aspirin 81 MG Tab.EC PO SCH (08:04)
[2022-11-13] MEDS ORDERED: Furosemide 20 MG Tab PO SCH (09:00)
[2022-11-13] MEDS ORDERED: Furosemide 40 MG Tab PO SCH (09:00)
[2022-11-13] MEDS ORDERED: Furosemide 20 MG Tab PO PRN (09:12)
[2022-11-13] MEDS: Enoxaparin 30 MG/0.3 ML Syringe SUBCUT SCH (10:02)
[2022-11-13] MEDS: cefTRIAXone 1 GM Vial IVPUSH SCH (10:02)
[2022-11-13] MEDS: Potassium Chloride 20 MEQ Tab.ER PO SCH ×2 (10:03→21:35)
[2022-11-13] MEDS: Nicotine 21 MG/24 Hr Patch TRDERM SCH (10:55)
[2022-11-13] MEDS: Venlafaxine 150 MG Cap.ER PO SCH (21:34)
[2022-11-13] MEDS: atorvaSTATin 40 MG Tab PO SCH (21:35)
[2022-11-13] MEDS: Tamsulosin 0.4 MG Cap.ER PO SCH (21:35)
[2022-11-13] MEDS: Mirtazapine 15 MG Tab PO SCH (21:36)
[2022-11-13] MEDS: Insulin Glargine,Human Rec. Analog 100 Units/ML 3 ML Pen SUBCUT SCH (21:44)
[2022-11-14] MEDS: Pantoprazole 40 MG Tab.CR PO SCH (06:58)
[2022-11-14 07:06] LABS: ESTIMATED GFR 39 mL/min (>60)
[2022-11-14] MEDS: Potassium Chloride 20 MEQ Tab.ER PO SCH (08:35)
[2022-11-14] MEDS: Aspirin 81 MG Tab.EC PO SCH (08:35)
[2022-11-14] MEDS: Folic Acid 1 MG Tab PO SCH (08:35)
[2022-11-14] MEDS: Nicotine 21 MG/24 Hr Patch TRDERM SCH (08:35)
[2022-11-14] MEDS: predniSONE 20 MG Tab PO SCH (08:36)
[2022-11-14] MEDS: Sodium Bicarbonate 650 MG Tab PO SCH (08:36)
[2022-11-14] MEDS: Cholecalciferol (Vitamin D3) 25 MCG Tab PO SCH (08:36)
[2022-11-14] MEDS: Ticagrelor 90 MG Tab PO SCH (08:36)
[2022-11-14] MEDS: cefTRIAXone 1 GM Vial IVPUSH SCH (08:37)
[2022-11-14] MEDS: Carvedilol 12.5 MG Tab PO SCH (08:37)
[2022-11-14] MEDS: Isosorbide Mononitrate 30 MG Tab.ER PO SCH (08:37)
[2022-11-14] MEDS: Insulin Lispro 100 Unit/ML 3 ML KwikPen SUBCUT SCH (08:38)
[2022-11-14] MEDS ORDERED: VANCOmycin 1 GM/200 ML 200 ML IV SCH (10:00)
[2022-11-14] MEDS: Enoxaparin 30 MG/0.3 ML Syringe SUBCUT SCH (10:21)
[2022-11-14] MEDS: Sodium Chloride 0.9% 10 ML Syringe FLUSH PRN (10:23)
[2022-11-15] MEDS ORDERED: predniSONE 10 MG Tab PO SCH (09:00)
== END 2022-11-14 11:35 | DRG 291 ==
LOC: FB.ED 17:30 → FB.MS 20:21
PROVIDERS: ADMIT Student in an Organized Health Care Education/Training Program; ATTEND Family Medicine
DX: I13.0 Hypertensive heart and chronic kidney disease with heart failure and stage 1 through stage 4 chronic kidney disease, or unspecified chronic kidney disease (principal); A41.9 Sepsis, unspecified organism; E11.69 Type 2 diabetes mellitus with other specified complication; I13.10 Hypertensive heart and chronic kidney disease without heart failure, with stage 1 through stage 4 chronic kidney disease, or unspecified chronic kidney disease; R53.1 Weakness; I50.43 Acute on chronic combined systolic (congestive) and diastolic (congestive) heart failure; Z79.84 Long term (current) use of oral hypoglycemic drugs; J44.1 Chronic obstructive pulmonary disease with (acute) exacerbation; J90 Pleural effusion, not elsewhere classified; Z20.822 Contact with and (suspected) exposure to COVID-19; T82.7XXD Infection and inflammatory reaction due to other cardiac and vascular devices, implants and grafts, subsequent encounter; E11.22 Type 2 diabetes mellitus with diabetic chronic kidney disease; F41.9 Anxiety disorder, unspecified; H54.7 Unspecified visual loss; E78.00 Pure hypercholesterolemia, unspecified; N18.9 Chronic kidney disease, unspecified; E66.9 Obesity, unspecified; I34.0 Nonrheumatic mitral (valve) insufficiency; Z95.0 Presence of cardiac pacemaker; Z79.899 Other long term (current) drug therapy; Z79.82 Long term (current) use of aspirin; Z79.4 Long term (current) use of insulin; Z79.52 Long term (current) use of systemic steroids; Z91.09 Other allergy status, other than to drugs and biological substances; Z85.72 Personal history of non-Hodgkin lymphomas; Z95.5 Presence of coronary angioplasty implant and graft; Z87.891 Personal history of nicotine dependence; Z68.25 Body mass index [BMI] 25.0-25.9, adult
CPT/HCPCS: 0241U; 36415; 71045; 71046; 80048; 80202; 82947; 83605; 83880; 84484; 85025; 87040; 93005; 93308; 96374; 97161-GP; 97165-GO; 97530-GP; 97535-GO; 99285-25; A9270-GY; J0696; J1650; J1815; J1815-GY; J1940; J2930; J3370; J3490; J7030; J7512

== ENCOUNTER 2022-12-03 10:08 | Emergency (ER) | payer OTHER, MEDICARE ==
[2022-12-03] MEDS ORDERED: Furosemide 40 MG/4 ML VIAL IVPUSH ONE (11:39)
[2022-12-03] MEDS ORDERED: Metolazone 2.5 MG Tab PO ONE (11:40)
[2022-12-03 11:45] LABS: ESTIMATED GFR 32 mL/min (>60)
== END 2022-12-03 14:43 ==
LOC: FB.ED 10:08
DX: I44.7 Left bundle-branch block, unspecified (principal); I13.0 Hypertensive heart and chronic kidney disease with heart failure and stage 1 through stage 4 chronic kidney disease, or unspecified chronic kidney disease; I50.43 Acute on chronic combined systolic (congestive) and diastolic (congestive) heart failure; N18.4 Chronic kidney disease, stage 4 (severe); J44.9 Chronic obstructive pulmonary disease, unspecified; E11.9 Type 2 diabetes mellitus without complications; E78.00 Pure hypercholesterolemia, unspecified; Z91.048 Other nonmedicinal substance allergy status; Z79.4 Long term (current) use of insulin; Z79.899 Other long term (current) drug therapy; Z79.82 Long term (current) use of aspirin
CPT/HCPCS: 36415; 71045; 80053; 83880; 84484; 85025; 85610; 85730; 93005; 96374; 99285-25; A9270-GY; J1940

== ENCOUNTER 2023-01-06 11:08 | Emergency (ER) | payer MEDICARE, OTHER ==
[2023-01-06] MEDS ORDERED: Sodium Chloride 0.9% 10 ML Syringe FLUSH PRN (11:59)
[2023-01-06] MEDS: Sodium Chloride 0.9% 1,000 ML IV SCH ×2 (12:10→13:37)
[2023-01-06 12:30] LABS: ESTIMATED GFR 27 mL/min (>60)
[2023-01-06] MEDS ORDERED: Potassium Chloride 20 MEQ in Premix Bag 1 BAG IV ONE (13:19)
[2023-01-06 15:20] LABS: ESTIMATED GFR 30 mL/min (>60)
== END 2023-01-06 16:15 | disposition home or self-care (01) ==
LOC: FB.ED 11:08
DX: K52.9 Noninfective gastroenteritis and colitis, unspecified (principal); D64.89 Other specified anemias; E87.6 Hypokalemia; I11.0 Hypertensive heart disease with heart failure; I50.9 Heart failure, unspecified; J44.9 Chronic obstructive pulmonary disease, unspecified; E11.9 Type 2 diabetes mellitus without complications; Z91.048 Other nonmedicinal substance allergy status; Z79.4 Long term (current) use of insulin; Z79.899 Other long term (current) drug therapy; Z79.82 Long term (current) use of aspirin; Z79.02 Long term (current) use of antithrombotics/antiplatelets; Z79.01 Long term (current) use of anticoagulants
CPT/HCPCS: 36415; 80048; 80053; 81001; 83605; 85025; 86140; 87040; 96361; 96365; 96366; 99284; J3480; J7030